=== PATIENT | female | born 2000 | race Two or more races ===

== ENCOUNTER 2024-04-09 13:47 | Inpatient (IN) | payer OTHER ==
[2024-04-09] MEDS ORDERED: Sodium Chloride 0.9% 2.5 ML Syringe FLUSH PRN (15:19)
[2024-04-09] MEDS ORDERED: Butorphanol 2 MG/ML SDV IVPUSH PRN (15:19)
[2024-04-09] MEDS ORDERED: Lidocaine 1% 50 ML MDV INJECT PRN (15:19)
[2024-04-09] MEDS ORDERED: Sodium Chloride 0.9% 20 ML SDV IV PRN (15:19)
[2024-04-09] MEDS ORDERED: Sodium Chloride 0.9% 10 ML Syringe FLUSH PRN (15:19)
[2024-04-09] MEDS: Betamethasone Acetate/Betamethasone Sod Phosphate 6 MG/1 ML MDV IM SCH (16:01)
[2024-04-09 16:20] LABS: HEMOGLOBIN 13.7 g/dL (12.0-16.0); MEAN CORPUSCULAR HEMOGLOBIN 29.8 pg (28.0-32.0); MEAN CORPUSCULAR HGB CONC 34.3 g/dL (32.0-36.0); MEAN PLATELET VOLUME 9.5 fL (9.4-12.3); PLATELET COUNT,PLT 235 K/uL (150-400); WHITE BLOOD CELL COUNT,WBC 17.86 K/uL (3.9-11.3)
[2024-04-09] MEDS ORDERED: Terbutaline 1 MG/ML SDV SUBCUT PRN (17:02)
[2024-04-09] MEDS: Ampicillin 2 GM in Sodium Chloride 0.9% 100 ML IV ONE (18:13)
[2024-04-09] MEDS: Misoprostol 25 MCG (1/4 of 100 MCG) Tab VAG PRN (18:14)
[2024-04-09] MEDS ORDERED: Phenylephrine HCl In 0.9% NaCl 1 MG/10 ML Syringe IVPUSH PRN (19:49)
[2024-04-09] MEDS ORDERED: ePHEDrine 50 MG/ML SDV IVPUSH PRN (19:49)
[2024-04-09] MEDS ORDERED: dexmedeTOMIDine HCl 200 MCG/2 ML SDV EPIDUR SCH (20:00)
[2024-04-09] MEDS: Ampicillin 1 GM in Sodium Chloride 0.9% 50 ML IV SCH (22:29)
[2024-04-10] MEDS: Lactated Ringers 1,000 ML IV SCH (02:30)
[2024-04-10] MEDS ORDERED: Methylergonovine 0.2 MG/1 ML Amp IM PRN (11:12)
[2024-04-10] MEDS ORDERED: Carboprost Tromethamine 250 MCG/1 mL Vial IM PRN (11:12)
[2024-04-10] MEDS ORDERED: Misoprostol 200 MCG Tab PO PRN (11:12)
[2024-04-10] MEDS ORDERED: Water For Irrigation,Sterile 1,000 ML Container IRR PRN (11:12)
[2024-04-10] MEDS ORDERED: Lidocaine 1% 50 ML MDV INJECT PRN (11:12)
[2024-04-10] MEDS ORDERED: Oxytocin/0.9 % Sodium Chloride 30 UNIT/500 ML BAG IV SCH (11:15)
[2024-04-10] MEDS: Oxytocin/0.9 % Sodium Chloride 30 UNIT/500 ML BAG IV SCH (11:38)
[2024-04-10 12:21] LABS: GROUP B STREP BY PCR NEGATIVE (NEGATIVE)
[2024-04-10] MEDS: Ropivacaine HCl/PF 400 MG in Premix Bag 1 BAG EPIDUR SCH (14:15)
[2024-04-10] MEDS ORDERED: Ondansetron 4 MG/2 ML SDV IVPUSH PRN (16:10)
[2024-04-10] MEDS ORDERED: Ibuprofen 800 MG Tab PO PRN (17:16)
[2024-04-10] MEDS ORDERED: Docusate Sodium 100 MG Cap PO PRN (17:16)
[2024-04-10] MEDS ORDERED: Acetaminophen 500 MG Tab PO PRN (17:16)
[2024-04-10 17:53] LABS: PH,UMBILICAL ARTERIAL 7.285 (7.18-7.38); PH,UMBILICAL VENOUS 7.347 (7.25-7.45)
[2024-04-10] MEDS: Witch Hazel Medicated Pads 40/Jar TOP PRN (20:07)
[2024-04-10] MEDS: Lanolin 100% Cream 7 GM Tube TOP PRN (20:07)
[2024-04-10] MEDS: Benzocaine/Menthol 20%-0.5% Spray 78 GM Cannister TOP PRN (20:08)
== END 2024-04-10 22:22 | disposition home or self-care (01) | DRG 807 ==
LOC: MW.OB 13:47 → MW.OBCHECK 13:47 → MW.OB 16:00 → MW.OBCHECK 16:00 → OBSVTOIN 04-10 16:27
PROVIDERS: ADMIT Obstetrics & Gynecology; ATTEND Obstetrics & Gynecology Obstetrics
PROC: 10E0XZZ Delivery of Products of Conception, External Approach (ICD-10-PCS; principal; 2024-04-10)
PROC: 3E0P7VZ Introduction of Hormone into Female Reproductive, Via Natural or Artificial Opening (ICD-10-PCS; 2024-04-10)
PROC: 3E033VJ Introduction of Other Hormone into Peripheral Vein, Percutaneous Approach (ICD-10-PCS; 2024-04-10)
PROC: 0HQ9XZZ Repair Perineum Skin, External Approach (ICD-10-PCS; 2024-04-10)
PROC: 3E0R3BZ Introduction of Anesthetic Agent into Spinal Canal, Percutaneous Approach (ICD-10-PCS; 2024-04-10)
PROC: 00HU33Z Insertion of Infusion Device into Spinal Canal, Percutaneous Approach (ICD-10-PCS; 2024-04-10)
DX: O41.03X0 Oligohydramnios, third trimester, not applicable or unspecified (principal); Z37.0 Single live birth; O70.0 First degree perineal laceration during delivery; O36.5930 Maternal care for other known or suspected poor fetal growth, third trimester, not applicable or unspecified; Z3A.36 36 weeks gestation of pregnancy
CPT/HCPCS: 01967; 36415; 51702; 59025; 59409; 76819; 76819-26; 82803; 85027; 86592; 86850; 86900; 86901; 87653; A9270-GY; J0290; J0702; J2590; J2795; J3490; J7120